=== PATIENT | male | born 1960 | race Hispanic/Latino ===

== ENCOUNTER 2024-09-24 09:43 | Observation (INO) | payer OTHER ==
[2024-09-24] VITALS (7 sets, daily range): BP systolic 93–170; BP diastolic 50–81; PULSE 62–78; RESP 16–20; TEMP 97.5–97.9; O2SAT 94–99
[~2024-09-24] VITALS: Ht 170.2 cm; Wt 163.3 kg
[~2024-09-24 09:43] MED LIST: LIDOCAINE 4% PATCH TP PRN
[2024-09-24 10:42] LABS: BASOPHILS # (AUTO) 0.1 (0.0-0.1); BASOPHILS % 0.8 % (0.0-1.0); EOSINOPHILS # (AUTO) 0.4 (0.0-0.4); EOSINOPHILS % 4.3 % (0.0-6.0); HEMATOCRIT 45.6 % (38.2-49.6); LYMPHOCYTES # (AUTO) 2.8 (1.0-3.2); LYMPHOCYTES % 27.9 % (18.0-39.1); MEAN CORPUSCULAR HEMOGLOBIN 28.6 pg (28-32); MEAN CORPUSCULAR HGB CONC 32.9 g/dL (31-35); MONOCYTES % 10.2 % (4.4-11.3); NEUTROPHILS # (AUTO) 5.6 (2.1-6.9); NEUTROPHILS % 56.2 % (38.7-80.0); PLATELET COUNT 266 x10e3/uL (140-360); RED BLOOD COUNT 5.24 x10e6/uL (4.3-5.7); RED CELL DISTRIBUTION WIDTH 13.1 % (11.7-14.4); WHITE BLOOD COUNT 10.02 x10e3/uL (4.8-10.8)
[2024-09-24 10:59] LABS: ALBUMIN 3.8 g/dL (3.5-5.0); ANION GAP 13.1 mmol/L (8-16); BILIRUBIN,TOTAL 0.3 mg/dL (0.2-1.2); CALCIUM 9.3 mg/dL (8.4-10.2); CREATININE, SERUM 0.97 mg/dL (0.72-1.25); POTASSIUM 4.1 mmol/L (3.5-5.1); TOTAL PROTEIN 7.8 g/dL (6.5-8.1)
[2024-09-24 11:05] LABS: TROPONIN I 0.112 ng/mL (0-0.300)
[2024-09-24] MEDS ORDERED: DEXTROSE 50% SYRINGE 50 ML IV PRN ×2 (12:15→15:15)
[2024-09-24] MEDS ORDERED: CLONIDINE HCL 0.1 MG TAB PO PRN (12:15)
[2024-09-24] MEDS: HYDROMORPHONE 2MG/ML IV PRN (15:07)
[2024-09-24] MEDS ORDERED: DIPHENHYDRAMINE HCL 25 MG CAP PO PRN (15:15)
[2024-09-24] MEDS ORDERED: DOCUSATE SODIUM 100 MG CAP PO PRN (15:15)
[2024-09-24] MEDS ORDERED: SIMETHICONE 80 MG CHEW PO PRN (15:15)
[2024-09-24] MEDS ORDERED: ACETAMINOPHEN 325 MG TAB PO PRN (15:15)
[2024-09-24] MEDS ORDERED: HYDRALAZINE HCL 20 MG/ML VIAL IV PRN (15:15)
[2024-09-24] MEDS ORDERED: POTASSIUM CHLORIDE 20 MEQ TAB CR PO PRN (15:15)
[2024-09-24] MEDS ORDERED: BENZONATATE 100 MG CAP PO PRN (15:15)
[2024-09-24] MEDS ORDERED: ALBUTEROL/IPRATROPIUM 3 ML NEB NEB PRN (15:15)
[2024-09-24] MEDS ORDERED: OMEPRAZOLE40 MG PO (16:06)
[2024-09-24] MEDS ORDERED: LIPITOR20 MG PO (16:06)
[2024-09-24] MEDS ORDERED: NEURONTIN100 MG PO (16:06)
[2024-09-24] MEDS ORDERED: ISOSORBIDE MONO30 MG PO (16:06)
[2024-09-24] MEDS ORDERED: FAMOTIDINE20 MG PO (16:06)
[2024-09-24] MEDS ORDERED: FUROSEMIDE40 MG PO (16:06)
[2024-09-24] MEDS ORDERED: METOPROLOL TART50 MG PO (16:06)
[2024-09-24] MEDS ORDERED: ASPIRIN81 MG PO (16:06)
[2024-09-24] MEDS ORDERED: Morphine 2mg Syringe 2 MG/ML SYR IV PRN (16:15)
[2024-09-24] MEDS: INSULIN LISPRO 100 UNIT/1 ML 3ML VIAL SQ SCH (16:24)
[2024-09-24] MEDS ORDERED: IOPAMIDOL 370 MG/ML 100 ML INFUS..BTL INJ ONE (16:55)
[2024-09-24] MEDS: ONDANSETRON HCL INJ 2MG/ML 2ML 2 MG/ML VIAL IV PRN (17:09)
[2024-09-24] MEDS: FUROSEMIDE 40 MG TAB PO SCH (17:35)
[2024-09-24] MEDS: ENOXAPARIN SOD INJ 40 MG/0.4 ML SYR SC SCH (17:35)
[2024-09-24] MEDS: METOPROLOL TARTRATE 50 MG TAB PO SCH (17:35)
[2024-09-24] MEDS: CARVEDILOL 12.5 MG TAB PO SCH (17:36)
[2024-09-24] MEDS: ATORVASTATIN 40 MG TAB PO SCH (20:48)
[2024-09-24] MEDS: GABAPENTIN 100 MG CAP PO SCH (20:48)
[2024-09-24] MEDS: MELATONIN 5 MG TABLET PO PRN (20:49)
[2024-09-24] MEDS: TRAMADOL/APAP 37.5MG-325MG TAB PO PRN (20:49)
[2024-09-25] VITALS (10 sets, daily range): BP systolic 93–154; BP diastolic 50–92; PULSE 62–73; RESP 18–20; TEMP 97.5–97.9; O2SAT 95–100
[2024-09-25] MEDS ORDERED: DONNATAL/LIDOCAINE/MAALOX 30 ML SUSP PO ONE ×2 (00:15→00:30)
[2024-09-25] MEDS: BELLADONNA ALK/PHENOBARBITAL 5 ML UDC PO ONE (00:44)
[2024-09-25] MEDS: LIDOCAINE VISC 2% SOLN 15 ML UDC PO ONE (00:44)
[2024-09-25] MEDS: MAGNESIUM/ALUMINUM/SIMETHICONE 30 ML UDC PO ONE (00:45)
[2024-09-25 05:44] LABS: BASOPHILS # (AUTO) 0.1 (0.0-0.1); BASOPHILS % 0.9 % (0.0-1.0); EOSINOPHILS # (AUTO) 0.3 (0.0-0.4); EOSINOPHILS % 3.4 % (0.0-6.0); HEMATOCRIT 44.5 % (38.2-49.6); HEMOGLOBIN 14.6 g/dL (14.0-18.0); LYMPHOCYTES % 32.3 % (18.0-39.1); MEAN CORPUSCULAR HEMOGLOBIN 28.5 pg (28-32); MEAN CORPUSCULAR HGB CONC 32.8 g/dL (31-35); MEAN CORPUSCULAR VOLUME 86.9 fL (81-99); MONOCYTES # (AUTO) 0.8 (0.2-0.8); MONOCYTES % 8.5 % (4.4-11.3); NEUTROPHILS # (AUTO) 5.1 (2.1-6.9); NEUTROPHILS % 54.3 % (38.7-80.0); PLATELET COUNT 251 x10e3/uL (140-360); RED BLOOD COUNT 5.12 x10e6/uL (4.3-5.7); WHITE BLOOD COUNT 9.33 x10e3/uL (4.8-10.8)
[2024-09-25 06:05] LABS: ANION GAP 15.1 mmol/L (8-16); CALCIUM 9.2 mg/dL (8.4-10.2); CREATININE, SERUM 0.92 mg/dL (0.72-1.25); POTASSIUM 4.1 mmol/L (3.5-5.1)
[2024-09-25 06:21] LABS: CHOL/HDL RATIO 3.9 (3.9-4.7); MAGNESIUM 2.1 MG/DL (1.3-2.1)
[2024-09-25 06:42] LABS: THYROID STIMULATING HORMONE 0.38 uIU/mL (0.350-4.940)
[2024-09-25] MEDS ORDERED: PANTOPRAZOLE SOD 40 MG TABEC PO SCH (07:30)
[2024-09-25] MEDS: ASPIRIN 81 MG CHEW TAB PO SCH (08:39)
[2024-09-25] MEDS: ISOSORBIDE MONONITRATE 30 MG TAB CR PO SCH (08:39)
[2024-09-25] MEDS ORDERED: ATORVASTATIN 20 MG TAB PO SCH (09:00)
[2024-09-25] MEDS ORDERED: ASPIRIN 81 MG CHEW TAB PO SCH (09:00)
[2024-09-25] MEDS ORDERED: FENTANYL CITRATE/PF 100MCG/2 ML INJ ONE (13:45)
[2024-09-25] MEDS ORDERED: LIDOCAINE HCL 2% LOCAL INJ 5 ML SDV VIAL INJ ONE (13:45)
[2024-09-25] MEDS ORDERED: PROPOFOL IV EMULSION 50 ML IV ONE (13:45)
[2024-09-25] MEDS ORDERED: ONDANSETRON HCL INJ 2MG/ML 2ML 2 MG/ML VIAL ONE (13:45)
[2024-09-25] MEDS ORDERED: CYCLOBENZAPRINE HCL 10 MG TAB PO PRN (15:00)
[2024-09-25 15:33] LABS: HEMATOCRIT 45.2 % (38.2-49.6); HEMOGLOBIN 15.2 g/dL (14.0-18.0)
[2024-09-25] MEDS: CYCLOBENZAPRINE HCL 10 MG TAB PO ONE (15:49)
[2024-09-26 03:11] VITALS: BP 134/73; PULSE 78; RESP 20; TEMP 97.8; O2SAT 94
[2024-09-26 07:43] LABS: ANION GAP 14.9 mmol/L (8-16); CREATININE, SERUM 0.86 mg/dL (0.72-1.25); POTASSIUM 3.9 mmol/L (3.5-5.1)
[2024-09-26 08:02] VITALS: PULSE 62; RESP 20; O2SAT 96
[2024-09-26 08:45] VITALS: BP 186/71; PULSE 88; RESP 20; TEMP 97; O2SAT 99
[2024-09-26 09:00] VITALS: BP 186/71; PULSE 88; RESP 20; TEMP 97; O2SAT 99
[2024-09-26 11:32] VITALS: BP 118/74; PULSE 76; RESP 18; TEMP 97.8; O2SAT 97
[2024-09-26 13:12] VITALS: PULSE 68; RESP 20; O2SAT 97
[2024-09-26] MEDS: LIDOCAINE 4% PATCH TP ONE (14:10)
== END 2024-09-26 14:14 | disposition home or self-care (01) ==
LOC: ER 10:00 → ERHOLD 11:15 → MED/SURG3 12:35
PROVIDERS: ADMIT Internal Medicine; ATTEND Internal Medicine
DX: R07.89 Other chest pain (principal); K20.90 Esophagitis, unspecified without bleeding; K29.70 Gastritis, unspecified, without bleeding; I10 Essential (primary) hypertension; E78.5 Hyperlipidemia, unspecified; E66.01 Morbid (severe) obesity due to excess calories; Z68.43 Body mass index [BMI] 50.0-59.9, adult; Z98.84 Bariatric surgery status; K76.0 Fatty (change of) liver, not elsewhere classified; I25.10 Atherosclerotic heart disease of native coronary artery without angina pectoris; Z95.1 Presence of aortocoronary bypass graft; E11.9 Type 2 diabetes mellitus without complications
CPT/HCPCS: 36415 ×3; 43239; 71045; 71260; 74177; 80048 ×2; 80053; 80061; 82948; 83036; 83690; 83735; 84443; 84484 ×2; 85014; 85018; 85025 ×2; 88305; 93005; 93306; 94799 ×3; 99284; G0378 ×3; J1171; J1650 ×2; J2003; J2405 ×2; J2470 ×3; J2704; J3010; Q9967